=== PATIENT | female | born 1960 | race Caucasian/White ===

== ENCOUNTER → 2017-05-29 | Outpatient (CLI) | payer BC ==
--- NOTE | 2017-05-31 10:14 | MM ---
Reason for exam: screening (asymptomatic). Last mammogram was performed 1 year and 11 months ago. History: Patient is postmenopausal and is nulliparous. Cancelled Right Mammotome of the right breast, July 19, 2006. Excisional biopsy of the left breast, 1994. Physical Findings: A clinical breast exam by your physician is recommended on an annual basis and results should be correlated with mammographic findings. MG 3D Screening Mammo W/Cad Bilateral CC and MLO view(s) were taken. Prior study comparison: July 13, 2015, bilateral MG screening mammo w CAD. July 02, 2013, bilateral digital screening mammo w/CAD. June 23, 2012, bilateral digital screening mammo w/CAD. June 20, 2011, bilateral digital screening mammo w/CAD. The breast tissue is heterogeneously dense. This may lower the sensitivity of mammography. No significant changes when compared with prior studies. ASSESSMENT: Negative, BI-RAD 1 RECOMMENDATION: Routine screening mammogram of both breasts in 1 year.
== END | disposition home or self-care (01) ==
LOC: RADMAMWWP 16:45
PROVIDERS: ATTEND Obstetrics & Gynecology
DX: Z12.31 Encounter for screening mammogram for malignant neoplasm of breast (principal)
CPT/HCPCS: 77063; G0202

== ENCOUNTER → 2018-06-12 | Outpatient (CLI) | payer BC ==
--- NOTE | 2018-06-12 16:06 | MM ---
Reason for exam: additional evaluation requested from prior study. Last mammogram was performed 1 year ago. History: Patient is postmenopausal and is nulliparous. Cancelled Right Mammotome of the right breast, July 19, 2006. Benign excisional biopsy of the right breast, 2005. Excisional biopsy of the left breast, 1994. Physical Findings: Nurse did not find any significant physical abnormalities on exam. MG 3D Diag Mammo W/Cad OTF Bilateral CC and MLO view(s) were taken. Prior study comparison: May 29, 2017, bilateral MG 3d screening mammo w/cad. July 13, 2015, bilateral MG screening mammo w CAD. The breast tissue is heterogeneously dense. This may lower the sensitivity of mammography. There is no discrete abnormality. These results were verbally communicated with the patient and result sheet given to the patient on 06/12/18. ASSESSMENT: Negative, BI-RAD 1 RECOMMENDATION: Routine screening mammogram of both breasts in 1 year.
--- NOTE | 2018-06-12 16:08 | USB ---
Reason for exam: additional evaluation requested from prior study. History: Patient is postmenopausal and is nulliparous. Cancelled Right Mammotome of the right breast, July 19, 2006. Benign excisional biopsy of the right breast, 2005. Excisional biopsy of the left breast, 1994. US Breast LT Left complete breast ultrasound includes all four quadrants, the retroareolar region and axilla. Finding demonstrates a 1.1 x 0.2 x 0.2cm duct ectasia at the nipple and a 0.38cm node at the axilla. These results were verbally communicated with the patient and result sheet given to the patient on 06/12/18. ASSESSMENT: Benign, BI-RAD 2 RECOMMENDATION: Routine screening mammogram of both breasts in 1 year.
== END | disposition home or self-care (01) ==
LOC: RADMAMWWP 14:28
PROVIDERS: ATTEND Obstetrics & Gynecology
DX: R92.8 Other abnormal and inconclusive findings on diagnostic imaging of breast (principal)
CPT/HCPCS: 77062; 77066

== ENCOUNTER → 2019-10-05 | Outpatient (CLI) | payer BC ==
--- NOTE | 2019-10-05 10:18 | MM ---
Reason for exam: screening (asymptomatic). Last mammogram was performed 1 year and 4 months ago. History: Patient is postmenopausal and is nulliparous. Cancelled Right Mammotome of the right breast, July 19, 2006. Benign excisional biopsy of the right breast, 2005. Excisional biopsy of the left breast, 1994. Physical Findings: A clinical breast exam by your physician is recommended on an annual basis and results should be correlated with mammographic findings. MG Screening Mammo w CAD Bilateral CC and MLO view(s) were taken. Prior study comparison: June 12, 2018, bilateral MG 3d diag mammo w/cad OTF. May 29, 2017, bilateral MG 3d screening mammo w/cad. The breast tissue is heterogeneously dense. This may lower the sensitivity of mammography. No suspicious abnormality. No significant changes when compared with prior studies. ASSESSMENT: Negative, BI-RAD 1 RECOMMENDATION: Routine screening mammogram of both breasts in 1 year.
== END | disposition home or self-care (01) ==
LOC: RADMAMWWP 07:55
PROVIDERS: ATTEND Obstetrics & Gynecology
DX: Z12.31 Encounter for screening mammogram for malignant neoplasm of breast (principal)
CPT/HCPCS: 77067

== ENCOUNTER → 2020-10-24 | Outpatient (CLI) | payer BC ==
--- NOTE | 2020-10-25 09:48 | MM ---
Reason for exam: screening (asymptomatic). Last mammogram was performed 1 year and 1 month ago. History: Patient is postmenopausal and is nulliparous. Cancelled Right Mammotome of the right breast, July 19, 2006. Benign excisional biopsy of the right breast, 2005. Excisional biopsy of the left breast, 1994. Physical Findings: A clinical breast exam by your physician is recommended on an annual basis and results should be correlated with mammographic findings. MG Screening Mammo w CAD Bilateral CC and MLO view(s) were taken. Prior study comparison: October 05, 2019, bilateral MG screening mammo w CAD. June 12, 2018, bilateral MG 3d diag mammo w/cad OTF. The breast tissue is heterogeneously dense. This may lower the sensitivity of mammography. There is no discrete abnormality. No significant changes when compared with prior studies. ASSESSMENT: Negative, BI-RAD 1 RECOMMENDATION: Routine screening mammogram of both breasts in 1 year.
== END | disposition home or self-care (01) ==
LOC: RADMAMWWP 09:42
PROVIDERS: ATTEND Obstetrics & Gynecology
DX: Z12.31 Encounter for screening mammogram for malignant neoplasm of breast (principal)
CPT/HCPCS: 77067

== ENCOUNTER → 2021-11-20 | Outpatient (CLI) | payer BC ==
--- NOTE | 2021-11-21 12:07 | MM ---
Reason for exam: screening (asymptomatic). Last mammogram was performed 1 year and 1 month ago. History: Patient is postmenopausal and is nulliparous. Cancelled Right Mammotome of the right breast, July 19, 2006. Benign excisional biopsy of the right breast, 2005. Excisional biopsy of the left breast, 1994. Physical Findings: A clinical breast exam by your physician is recommended on an annual basis and results should be correlated with mammographic findings. MG Screening Mammo w CAD Bilateral CC and MLO view(s) were taken. Prior study comparison: October 24, 2020, bilateral MG screening mammo w CAD. October 05, 2019, bilateral MG screening mammo w CAD. May 29, 2017, bilateral MG 3d screening mammo w/cad. The breast tissue is heterogeneously dense. This may lower the sensitivity of mammography. Finding: There is a suspicious nodularity located 5-6 cm from the nipple in the right breast laterally. New finding since October 24, 2020 and October 05, 2019. ASSESSMENT: Incomplete: need additional imaging evaluation, BI-RAD 0 RECOMMENDATION: Special view mammogram of the right breast. If lesion persists on supplemental views, image directed ultrasound is recommended. [facility] will attempt to contact patient to return for supplemental views and ultrasound if indicated.
== END | disposition home or self-care (01) ==
LOC: RADMAMWWP 12:54
PROVIDERS: ATTEND Obstetrics & Gynecology
DX: Z12.31 Encounter for screening mammogram for malignant neoplasm of breast (principal)
CPT/HCPCS: 77067

== ENCOUNTER → 2021-11-22 | Outpatient (CLI) | payer BC ==
--- NOTE | 2021-11-27 09:26 | MM ---
Reason for exam: additional evaluation requested from abnormal screening. Last mammogram was performed less than 1 month ago. History: Patient is postmenopausal, history of other cancer, and is nulliparous. Cancelled Right Mammotome of the right breast, July 19, 2006. Benign excisional biopsy of the right breast, 2005. Excisional biopsy of the left breast, 1994. Physical Findings: Nurse did not find any significant physical abnormalities on exam. MG Work Up Mamm w CAD RT Spot compression CC and ML view(s) were taken of the right breast. Prior study comparison: November 20, 2021, bilateral MG screening mammo w CAD. October 24, 2020, bilateral MG screening mammo w CAD. The breast tissue is heterogeneously dense. This may lower the sensitivity of mammography. Lateral posterior asymmetric density does not persist. Global asymmetry superiorly is unchanged. No significant new findings when compared with previous films. These results were verbally communicated with the patient and result sheet given to the patient on 11/22/21. ASSESSMENT: Benign, BI-RAD 2 RECOMMENDATION: Return to routine screening mammogram schedule for both breasts.
== END | disposition home or self-care (01) ==
LOC: RADMAMWWP 15:06
PROVIDERS: ATTEND Obstetrics & Gynecology
DX: R92.8 Other abnormal and inconclusive findings on diagnostic imaging of breast (principal)
CPT/HCPCS: 77065

== ENCOUNTER → 2022-11-21 | Outpatient (CLI) | payer BC ==
--- NOTE | 2022-11-22 19:13 | MM ---
Reason for Exam: Screening (asymptomatic). Last screening mammogram was performed 12 month(s) ago. Patient History: Menarche at age 12. Patient has no children. Postmenopausal. 1994, Excisional Biopsy on the Left side. 2005, Benign Excisional Biopsy on the right side. 07/19/2006, Cancelled Right Mammotome on the right side. Risk Values: Emily 5 year model risk: 2.6%. NCI Lifetime model risk: 10.9%. Prior Study Comparison: 10/24/2020 Bilateral Screening Mammogram, [facility]. 11/20/2021 Bilateral Screening Mammogram, [facility]. 11/22/2021 Right Diagnostic Mammogram, [facility]. Tissue Density: The breast tissue is heterogeneously dense. This may lower the sensitivity of mammography. Findings: Analyzed By CAD. Areas of bilateral asymmetric density remain unchanged. A couple benign with right are redemonstrated. No significant change from prior exams. Overall Assessment: Benign, BI-RAD 2 Management: Screening Mammogram of both breasts in 1 year. 1. Patient should continue monthly self breast exams. 2. A clinical breast exam by your physician is recommended on an annual basis. 3. This exam should not preclude additional follow-up of suspicious palpable abnormalities. Electronically signed and approved by: Cholo Elliott M.D. Radiologist
== END | disposition home or self-care (01) ==
LOC: RADMAMWWP 16:17
PROVIDERS: ATTEND Obstetrics & Gynecology
DX: Z12.31 Encounter for screening mammogram for malignant neoplasm of breast (principal); Z78.0 Asymptomatic menopausal state
CPT/HCPCS: 77063; 77067

== ENCOUNTER 2023-07-08 19:54 | Outpatient (CLI) | payer BC ==
--- NOTE | 2023-07-09 13:13 | P.PCN ---
Date of Procedure: 07/08/23 Operative Findings: CPAP titration report History Severe symptomatic obstructive sleep apnea with an AHI of 55 Severe nocturnal oxygen desaturation with a minimum pulse ox of 70% Loud snoring Mallampati class IV with an overbite Chronic grinding Sinton score is at 4 Hypothyroidism Scoliosis of the lumbar spine Physical findings The patient's weight is 124 pounds with a body mass index of 19.4 Technical description The patient was studied using a standard complex polysomnography protocol that included recording of the 2 EKG, Central, occipital and frontal EEG, right and left outer canthus EOG, submental EMG, right and left anterior tibialis EMG, respiratory airflow by thermocouple and or pressure/flow transducer, respiratory efforts by abdominal and thoracic PVDF belts, oxygen saturation by cable oximetry. Position by observation synchronized the PSG. 4 children 12 and selected patients, ETCO2 may be added to the recording. Equipment used: [employer]. CPAP titration was done to eliminate obstructive respiratory events. Sleep architecture the total time in bed was 4 and 19 minutes. The total sleep time was 728.5 minutes. This sleep efficiency was 81.5%. The latest to sleep onset was 5.5 minutes. This sleep architecture was catheterized by 4.9% stage I, 57.4% stage II, 11.7% stage III and 26% REM sleep. The wake after sleep onset time was 81.5 minutes. Sleep continuity The patient had a total of 60 arousals and arousal index of 9.7 and the respiratory arousal index was 2.7 Respiratory analysis The CPAP titration was initiated at a pressure of 5 cm of water and the pressure was gradually increased by increments of 1 cm TO reach a maximum CPAP pressure of 11 cm of water. There was significant improvement of the obstructive obstructive respiratory events especially approximately 9 cm and above. I carefully reviewed the CPAP titration taking into account patient's sleep stage and body position. based on my review, the patient will be started on a cpap pressure of 11 cm of water as a target pressure to treat the patient's obstructive sleep apnea. Oxygenation analysis The patient's lowest pulse ox was 80% and the patient spent approximately 30 minutes of the sleep time below pulse ox of 89%. Minimum pulse ox during REM was 81% Cardiac evaluation The average heart rate was 47, minimum heart rate was 43, heart rate max was 53 and the rhythm was sinus Periodic limb movement summary No significant periodic limb movements activity noted Assessment Severe symptomatic VANDA with an AHI of 55 and the patient underwent a successful CPAP titration Hypothyroidism Scoliosis of lumbar spine Nocturnal oxygen saturation which has recovered while being on CPAP therapy. Plan Initiate CPAP therapy at pressure of 11 cm of water with C-Flex of 3. The patient was fitted with a airfit N30 I nasal mask, small size pillow, with a standard headgear and a small pillow. The patient will see him back in the office in 30-90 days to assess clinical response and compliancy.
== END 2023-07-09 05:50 | disposition home or self-care (01) ==
LOC: 3 N SLEEP 19:54
PROVIDERS: ATTEND Internal Medicine Critical Care Medicine
DX: G47.33 Obstructive sleep apnea (adult) (pediatric) (principal); E03.9 Hypothyroidism, unspecified; M41.9 Scoliosis, unspecified; Z99.89 Dependence on other enabling machines and devices; Z79.890 Hormone replacement therapy
CPT/HCPCS: 95811

== ENCOUNTER → 2023-11-22 | Outpatient (CLI) | payer BC ==
--- NOTE | 2023-11-27 12:36 | MM ---
Reason for Exam: Screening (asymptomatic). Last screening mammogram was performed 12 month(s) ago. Patient History: Menarche at age 12. Patient has no children. Postmenopausal. 1994, Excisional Biopsy on the Left side. 2005, Benign Excisional Biopsy on the right side. 07/19/2006, Cancelled Right Mammotome on the right side. Risk Values: Emily 5 year model risk: 2.7%. NCI Lifetime model risk: 10.6%. Prior Study Comparison: 11/20/2021 Bilateral Screening Mammogram, [facility]. 11/22/2021 Right Diagnostic Mammogram, [facility]. 11/21/2022 Bilateral MG 3D screening mammo w/cad, [facility]. Tissue Density: The breast tissue is heterogeneously dense. This may lower the sensitivity of mammography. Findings: Analyzed By CAD. There is no suspicious group of microcalcifications or new suspicious mass. Benign-appearing calcifications right breast. Overall Assessment: Benign, BI-RAD 2 Management: Screening Mammogram of both breasts in [address] [facility] will attempt to contact patient to return for supplemental views and ultrasound if indicated. Patient should continue monthly self-breast exams. A clinical breast exam by your physician is recommended on an annual basis. This exam should not preclude additional follow-up of suspicious palpable abnormalities. Note on Emily scores and lifetime risk: 1. A Emily score greater than 3% is considered moderate risk. If this is the case, consider specialist referral to assess eligibility for a risk reducing agent. 2. If overall lifetime risk for the development of breast cancer is 20% or higher, the patient may qualify for future screening with alternating mammogram and breast MRI. Electronically signed and approved by: Hakan Ceja DO
== END | disposition home or self-care (01) ==
LOC: RADMAMWWP 09:04
PROVIDERS: ATTEND Obstetrics & Gynecology Obstetrics
DX: Z12.31 Encounter for screening mammogram for malignant neoplasm of breast (principal); Z78.0 Asymptomatic menopausal state
CPT/HCPCS: 77063; 77067

== ENCOUNTER → 2024-06-18 | Outpatient (CLI) | payer BC ==
--- NOTE | 2024-06-18 11:38 | USB ---
Reason for Exam: Clinical finding. Patient History: Menarche at age 12. Patient has no children. Postmenopausal. 1994, Excisional Biopsy on the Left side. 2005, Benign Excisional Biopsy on the right side. 07/19/2006, Cancelled Right Mammotome on the right side. Risk Values: Emily 5 year model risk: 2.8%. NCI Lifetime model risk: 10.3%. Technique: Method: Targeted. Prior Study Comparison: 11/22/2021 Right Diagnostic Mammogram, [facility]. 11/21/2022 Bilateral MG 3D screening mammo w/cad, [facility]. 11/22/2023 Bilateral MG 3D screening mammo w/cad, [facility]. Findings: The area of palpable concern of both breasts was scanned. No solid or cystic masses are identified.. No abnormality within the left breast to correlate with the palpable region. On the right side palpable region appears to correlate with a rib. No underlying suspicious ultrasound abnormality. Overall Assessment: Benign, BI-RAD 2 Management: Screening Mammogram of both breasts in 1 year. A clinical breast exam by your physician is recommended on an annual basis and results should be correlated with mammographic findings. This exam should not preclude additional follow-up of suspicious palpable abnormalities. Results were given to the patient verbally at the time of exam. Electronically signed and approved by: Michael Veliz D.O. Radiologis
--- NOTE | 2024-06-18 11:39 | MM ---
Reason for Exam: Clinical finding. Last screening mammogram was performed 7 month(s) ago. Patient History: Menarche at age 12. Patient has no children. Postmenopausal. 1994, Excisional Biopsy on the Left side. 2005, Benign Excisional Biopsy on the right side. 07/19/2006, Cancelled Right Mammotome on the right side. Risk Values: Emily 5 year model risk: 2.8%. NCI Lifetime model risk: 10.3%. Prior Study Comparison: 11/21/2022 Bilateral MG 3D screening mammo w/cad, [facility]. 11/22/2023 Bilateral MG 3D screening mammo w/cad, [facility]. Tissue Density: The breasts are heterogeneously dense, which may obscure small masses. Findings: Analyzed By CAD. The pattern is symmetrical. Benign spherical calcifications within the right breast. No significant interval changes are evident. Markers are placed over palpable abnormalities in the upper outer left upper lateral right. Identified in the craniocaudal on the right. No underlying mammographic abnormalities are evident. Additional evaluation with ultrasound over the palpable regions is recommended. No suspicious groups of microcalcifications, spiculated or lobular masses, architectural distortion or other secondary signs of malignancy are mammographically apparent. Overall Assessment: Incomplete: need additional imaging evaluation, BI-RAD 0 Management: Diagnostic Breast Ultrasound of both breasts. A negative mammogram report should not preclude additional follow up of suspicious palpable abnormalities. Patient should continue monthly self breast exam. A clinical breast exam by your physician is recommended on an annual basis and results should be correlated with mammographic findings. Note on Emily scores and lifetime risk: 1. A Emily score greater than 3% is considered moderate risk. If this is the case, consider specialist referral to assess eligibility for a risk reducing agent. 2. If overall lifetime risk for the development of breast cancer is 20% or higher, the patient may qualify for future screening with alternating mammogram and breast MRI. Electronically signed and approved by: Michael Veliz D.O. Radiologis
== END | disposition home or self-care (01) ==
LOC: RADMAMWWP 10:28
PROVIDERS: ATTEND Obstetrics & Gynecology
DX: R68.89 Other general symptoms and signs (principal); R92.333 Mammographic heterogeneous density, bilateral breasts; N63.11 Unspecified lump in the right breast, upper outer quadrant; N63.21 Unspecified lump in the left breast, upper outer quadrant
CPT/HCPCS: 77062; 77066